=== PATIENT | female | born 1945 | race African-American/Black ===

== ENCOUNTER 2018-07-14 11:29 | Emergency (ER) | payer OTHER ==
[~2018-07-14] VITALS: Ht 170.2 cm; Wt 72.6 kg
[2018-07-14] MEDS ORDERED: SYNTHROID88 MCG PO (11:52)
[2018-07-14 12:56] VITALS: BP 155/89
[2018-07-14] MEDS ORDERED: BUTALB-APAP-CA1 EACH PO (13:15)
== END 2018-07-14 12:56 | disposition home or self-care (01) ==
LOC: ER 11:29
DX: S09.8XXA Other specified injuries of head, initial encounter (principal); Z90.12 Acquired absence of left breast and nipple; V49.40XA Driver injured in collision with unspecified motor vehicles in traffic accident, initial encounter; Y93.89 Activity, other specified; Y92.89 Other specified places as the place of occurrence of the external cause; Y99.8 Other external cause status